=== PATIENT | female | born 1980 | race American Indian/Alaskan Native ===

== ENCOUNTER 2017-07-19 10:10 | Emergency (ER) | payer SELFPAY ==
[2017-07-19] MEDS ORDERED: DELTASONE PO ONE (13:46)
[2017-07-19] MEDS ORDERED: TYLENOL/CODEINE PO ONE (13:46)
--- NOTE | 2017-07-19 13:56 | Emergency Department Report ---
Minor Respiratory - HPI Chief Complaint: Upper Respiratory Infection Stated Complaint: SORE THROAT/MCBRIDE/COUGHING Time Seen by Provider: 07/19/17 13:13 Duration: 3 Days Pain Location: Ear Severity: moderate Minor Respiratory: Yes Sore Throat (pain with swallo), Yes Able to Tolerate Fluids, Yes Ear Pain, Yes Cough, No Rhinorrhea, No Sick Contacts, No Hemoptysis , No Chest Pain, No Shortness of Breath, No Fever Other History: Patient is a 37-year-old male who presents to ED complaining of throat pain 3 days. Patient describes pain as throbbing in nature, 8 out of 10 intensity, nonradiating, localized to his throat. Admits pain with swallowing and eating. Patient admits dry, nonproductive cough. Patient denies nausea/vomiting/abdominal pain/shortness of breath/chest pain/headache. ED Review of Systems ROS: Stated complaint: SORE THROAT/MCBRIDE/COUGHING Other details as noted in HPI Constitutional: denies: chills, fever Eyes: denies: eye pain, eye discharge, vision change ENT: throat pain. denies: ear pain Respiratory: cough. denies: shortness of breath, wheezing Cardiovascular: denies: chest pain, palpitations Endocrine: no symptoms reported Gastrointestinal: denies: abdominal pain, nausea, vomiting, diarrhea Genitourinary: denies: urgency, dysuria, frequency, hematuria, discharge Musculoskeletal: denies: back pain, joint swelling, arthralgia Skin: denies: rash, lesions, pruritus Neurological: denies: headache, weakness, paresthesias Psychiatric: denies: anxiety, depression Hematological/Lymphatic: denies: easy bleeding, easy bruising ED Past Medical Hx - Past Medical History Hx Hypertension: Yes Hx Congestive Heart Failure: No Hx Diabetes: Yes ("prediabetes" no treatment) Hx Deep Vein Thrombosis: No Hx Renal Disease: No Hx Sickle Cell Disease: No Hx Headaches / Migraines: Yes (migraines) Hx Seizures: No Hx Psychiatric Treatment: Yes (depression and anxiety) Hx Asthma: No Hx COPD: No Hx HIV: No - Social History Smoking Status: Never Smoker - Medications Home Medications: Home Medications Medication Instructions Recorded Confirmed Last Taken Type Azithromycin [Zithromax] 250 mg PO DAILY 11/02/16 11/02/16 Unknown History Losartan/Hydrochlorothiazide 1 each PO DAILY 11/02/16 11/02/16 Unknown History [Losartan-Hctz 50-12.5 mg Tab] Paroxetine HCl [Paxil] 30 mg PO DAILY 11/02/16 11/02/16 Unknown History amLODIPine [Norvasc] 10 mg PO DAILY 11/02/16 11/02/16 Unknown History clonazePAM [ Klonopin] 0.5 mg PO BID 11/02/16 11/02/16 Unknown History Acetamin/Codeine 120-12Mg/5 ml 5 ml PO TID PRN #60 ml 07/19/17 Unknown Rx [Tylenol/Codeine] Ibuprofen [Motrin] 600 mg PO Q8H PRN #30 tablet 07/19/17 Unknown Rx Nystas/Diphen/Xyl Visc/Mylanta 15 ml PO TID PRN #200 ml 07/19/17 Unknown Rx [Magic Mouthwash] Minor Respiratory Exam - Exam General: Vital signs noted. No distress. Alert and acting appropriately. HEENT: Yes Moist Mucous Membranes, No Pharyngeal Erythema, No Pharyngeal Exudates, No Rhinorrhea, No Conjuctival Injection, No Frontal Tenderness, No Maxillary Tenderness Ear: Neither TM Bulge, Neither TM Erythema, Neither EAC Pain, Neither EAC Discharge Neck: Yes Supple, No Adenopathy Lungs: Yes Good Air Exchange, No Wheezes, No Ronchi, No Stridor, No Cough, No Labored Respirations, No Retractions, No Use of Accessory Muscles, No Other Abnormal Lung Sounds Heart: Yes Regular, No Murmur Abdomen: Yes Normal Bowel Sounds, No Tenderness, No Peritoneal Signs Skin: No Rash, No Edema Neurologic: Alert and oriented, no deficits. Musculoskeletal: Unremarkable. ED Course Vital Signs 07/19/17 10:54 Temperature 99.8 F H Pulse Rate 102 H Respiratory 18 Rate Blood Pressure 172/98 O2 Sat by Pulse 99 Oximetry ED Medical Decision Making - Lab Data Temp Pulse Resp BP Pulse Ox 99.8 F H 94 H 20 160/90 96 07/19/17 10:54 07/19/17 15:24 07/19/17 15:24 07/19/17 15:24 07/19/17 15:24 Abnormal Lab Results 07/19/17 13:36 Group A Strep Rapid Positive A - Radiology Data Radiology results: report reviewed, image reviewed CHEST 2 VIEWS INDICATION: Chest pain, cough. COMPARISON: None similar. FINDINGS: PA and lateral chest radiographs demonstrate limited inspiration with mild exaggerated cardiomediastinal silhouette and clear lungs. Intact bones. Right hemidiaphragm approximately 3-4 cm higher than the left. CONCLUSION: No acute disease in the chest. Thank you for the opportunity to participate in this patient's care. Transcribed By: RS Dictated By: LARA VIRK MD Electronically Authenticated By: LARA VIRK MD Signed Date/Time: 07/19/17 1430 - Medical Decision Making 37-year-old female presents with strep pharyngitis. ED course: Rapid strep tests ordered rapid strep test positive Patient received 1 dose of Tylenol, 1.2 million units of penicillin, 60 mg of prednisone. Fever responsive to one dose of Tylenol. Vital signs stable patient is in no acute or respiratory distress. Discussed findings with patient about the positive strep. Discussed treatment in ED with patient Discussed the patient that strep throat is contagious and to limit sharing spoons and such. Application to be sent home on Motrin and a couple of days worth of prednisone. Discussed with patient follow-up with primary care physician. Patient verbally states he understands and will comply to follow-up. \\ Critical care attestation.: If time is entered above; I have spent that time in minutes in the direct care of this critically ill patient, excluding procedure time. ED Disposition Clinical Impression: Strep pharyngitis, Tonsillitis Disposition: DC-01 TO HOME OR SELFCARE Is pt being admited?: No Does the pt Need Aspirin: No Condition: Stable Instructions: Strep Throat (ED), Tonsillitis (ED) Additional Instructions: Make sure to follow up with the primary care physician as discussed. Take all your medications as you've been prescribed. If you have any worsening symptoms or develop new symptoms please return to ED immediately. Prescriptions: Acetamin/Codeine 120-12Mg/5 ml [Tylenol/Codeine] 5 ml PO TID PRN #60 ml PRN Reason: Pain Ibuprofen [Motrin] 600 mg PO Q8H PRN #30 tablet PRN Reason: Pain Nystas/Diphen/Xyl Visc/Mylanta [Magic Mouthwash] 15 ml PO TID PRN #200 ml PRN Reason: Sore Throat Referrals: PAVAN BRYSON MD [Referring] - 3-5 Days [facility] [Outside] - 3-5 Days [facility] [place] [Outside] - 3-5 Days [facility] [Outside] - 3-5 Days Forms: Accompanied Note, Work/School Release Form(ED) Time of Disposition: 14:40
--- NOTE | 2017-07-19 14:35 | XRay Report ---
CHEST 2 VIEWS INDICATION: Chest pain, cough. COMPARISON: None similar. FINDINGS: PA and lateral chest radiographs demonstrate limited inspiration with mild exaggerated cardiomediastinal silhouette and clear lungs. Intact bones. Right hemidiaphragm approximately 3-4 cm higher than the left. CONCLUSION: No acute disease in the chest. Thank you for the opportunity to participate in this patient's care.
[2017-07-19] MEDS ORDERED: BICILLIN L-A IM ONE (14:36)
[2017-07-19 15:25] VITALS: BP 160/90
== END 2017-07-19 15:23 | disposition home or self-care (01) ==
LOC: ED 10:10
DX: J02.0 Streptococcal pharyngitis (principal); J03.90 Acute tonsillitis, unspecified; I10 Essential (primary) hypertension
CPT/HCPCS: 71046; 87430; 96372; 99283; J0561; J7512

== ENCOUNTER 2018-01-27 06:54 | Emergency (ER) | payer SELFPAY ==
[2018-01-27 07:55] LABS: Basophils % (Auto) 0.3 % (0.0-1.8); Eosinophils % (Auto) 0.1 % (0.0-4.3); Hematocrit 35.8 % (30.3-42.9); Hemoglobin 11.7 gm/dl (10.1-14.3); Lymphocytes # (Auto) 1.6 K/mm3 (1.2-5.4); Lymphocytes % (Auto) 15.3 % (13.4-35.0); Mean Corpuscular HGB Conc 33 % (30-34); Mean Corpuscular Hemoglobin 27 pg (28-32); Mean Corpuscular Volume 81 fl (79-97); Monocytes # (Auto) 0.3 K/mm3 (0.0-0.8); Monocytes % (Auto) 2.7 % (0.0-7.3); Platelet Count 328 K/mm3 (140-440); Red Blood Count 4.42 M/mm3 (3.65-5.03); Red Cell Distribution Width 15.7 % (13.2-15.2)
[2018-01-27 08:21] LABS: Alanine Aminotransferase 18 units/L (7-56); Albumin 4.4 g/dL (3.9-5); BUN/Creatinine Ratio 18; Blood Urea Nitrogen 11 mg/dL (7-17); Calcium 9.4 mg/dL (8.4-10.2); Hemolysis Index 12; Lipase 13 units/L (13-60)
[2018-01-27 08:25] LABS: Bilirubin,Urine NEG (Negative); Blood,Urine NEG (Negative); Color,Urine Yellow (Yellow); Urobilinogen,Urine < 2.0 mg/dL (<2.0)
[2018-01-27] MEDS ORDERED: PERCOCET 5/325 PO ONE (09:23)
[2018-01-27] MEDS ORDERED: ZOFRAN ODT PO ONE (09:23)
[2018-01-27] MEDS ORDERED: TORADOL IM ONE (09:23)
--- NOTE | 2018-01-27 09:34 | Emergency Department Report ---
ED Abdominal Pain HPI - General Chief Complaint: Abdominal Pain Stated Complaint: BACK PAIN AND STOMACK PAIN Time Seen by Provider: 01/27/18 09:17 Source: patient Mode of arrival: Ambulatory Limitations: No Limitations - History of Present Illness Initial Comments: Ms. Phillips is a 37-year-old female with history of hypertension and anxiety depression who presents with lower back pain for the last month. She was evaluated at [facility]. X-rays were performed. She has left flank pain radiating to the lower abdomen. Radiating also to the left lower back and left upper quadrant. She's had nausea and vomiting. Mild dysuria. She denies fever. No history of kidney infections or kidney stones. Pain began one month ago and has worsened since yesterday on yesterday. Sharp crampy pain. 1010 in severity. Radiating to the left upper quadrant. MD Complaint: flank pain -: Gradual, month(s) (1) Location: L flank Radiation: suprapubic, R flank Severity scale (0 -10): 10 Quality: cramping, sharp Consistency: colicky Associated Symptoms: nausea, vomiting, dysuria - Related Data Home Medications Medication Instructions Recorded Confirmed Last Taken Azithromycin [Zithromax] 250 mg PO DAILY 11/02/16 11/02/16 Unknown Losartan/Hydrochlorothiazide 1 each PO DAILY 11/02/16 11/02/16 Unknown [Losartan-Hctz 50-12.5 mg Tab] Paroxetine HCl [Paxil] 30 mg PO DAILY 11/02/16 11/02/16 Unknown amLODIPine [Norvasc] 10 mg PO DAILY 11/02/16 11/02/16 Unknown clonazePAM [ Klonopin] 0.5 mg PO BID 11/02/16 11/02/16 Unknown Previous Rx's Medication Instructions Recorded Last Taken Type Acetamin/Codeine 120-12Mg/5 ml 5 ml PO TID PRN #60 ml 07/19/17 Unknown Rx [Tylenol/Codeine] Ibuprofen [Motrin] 600 mg PO Q8H PRN #30 tablet 07/19/17 Unknown Rx Nystas/Diphen/Xyl Visc/Mylanta 15 ml PO TID PRN #200 ml 07/19/17 Unknown Rx [Magic Mouthwash] Cyclobenzaprine [Flexeril] 10 mg PO TID PRN #20 tablet 01/27/18 Unknown Rx oxyCODONE /ACETAMINOPHEN [Percocet 1 tab PO Q6HR PRN #15 tablet 01/27/18 Unknown Rx 5/325] Allergies Allergy/AdvReac Type Severity Reaction Status Date / Time iodine Allergy Unknown Verified 01/27/18 07:17 seafood Allergy Anaphylaxis Uncoded 11/02/16 17:15 ED Review of Systems ROS: Stated complaint: BACK PAIN AND STOMACK PAIN Other details as noted in HPI Comment: All other systems reviewed and negative Constitutional: denies: fever, malaise Respiratory: denies: cough Cardiovascular: denies: chest pain ED Past Medical Hx - Past Medical History Hx Hypertension: Yes Hx Congestive Heart Failure: No Hx Diabetes: Yes ("prediabetes" no treatment) Hx Deep Vein Thrombosis: No Hx Renal Disease: No Hx Sickle Cell Disease: No Hx Headaches / Migraines: Yes (migraines) Hx Seizures: No Hx Psychiatric Treatment: Yes (depression and anxiety) Hx Asthma: No Hx COPD: No Hx HIV: No - Social History Smoking Status: Never Smoker Substance Use Type: None - Medications Home Medications: Home Medications Medication Instructions Recorded Confirmed Last Taken Type Azithromycin [Zithromax] 250 mg PO DAILY 11/02/16 11/02/16 Unknown History Losartan/Hydrochlorothiazide 1 each PO DAILY 11/02/16 11/02/16 Unknown History [Losartan-Hctz 50-12.5 mg Tab] Paroxetine HCl [Paxil] 30 mg PO DAILY 11/02/16 11/02/16 Unknown History amLODIPine [Norvasc] 10 mg PO DAILY 11/02/16 11/02/16 Unknown History clonazePAM [ Klonopin] 0.5 mg PO BID 11/02/16 11/02/16 Unknown History Acetamin/Codeine 120-12Mg/5 ml 5 ml PO TID PRN #60 ml 07/19/17 Unknown Rx [Tylenol/Codeine] Ibuprofen [Motrin] 600 mg PO Q8H PRN #30 tablet 07/19/17 Unknown Rx Nystas/Diphen/Xyl Visc/Mylanta 15 ml PO TID PRN #200 ml 07/19/17 Unknown Rx [Magic Mouthwash] Cyclobenzaprine [Flexeril] 10 mg PO TID PRN #20 tablet 01/27/18 Unknown Rx oxyCODONE /ACETAMINOPHEN [Percocet 1 tab PO Q6HR PRN #15 tablet 01/27/18 Unknown Rx 5/325] ED Physical Exam - General Limitations: No Limitations General appearance: alert, in no apparent distress, other (appears uncomfortable ) - Head Head exam: Present: atraumatic, normocephalic - Eye Eye exam: Present: normal appearance - ENT ENT exam: Present: mucous membranes moist - Neck Neck exam: Present: normal inspection. Absent: tenderness, meningismus - Respiratory Respiratory exam: Present: normal lung sounds bilaterally. Absent: respiratory distress, wheezes, rhonchi - Cardiovascular Cardiovascular Exam: Present: regular rate, normal rhythm, normal heart sounds. Absent: bradycardia, tachycardia, systolic murmur, diastolic murmur, rubs, gallop - GI/Abdominal GI/Abdominal exam: Present: soft, normal bowel sounds. Absent: distended, tenderness, guarding, rebound - Extremities Exam Extremities exam: Present: normal inspection - Back Exam Back exam: Present: normal inspection - Neurological Exam Neurological exam: Present: alert, oriented X3 - Psychiatric Psychiatric exam: Present: normal affect, normal mood - Skin Skin exam: Present: warm, dry, intact, normal color. Absent: rash ED Course Vital Signs 01/27/18 01/27/18 01/27/18 07:18 09:37 09:39 Temperature 97.8 F Pulse Rate 94 H Respiratory 18 18 18 Rate Blood Pressure 172/91 Blood Pressure [Left] O2 Sat by Pulse 100 Oximetry 01/27/18 10:53 Temperature 98 F Pulse Rate 98 H Respiratory 20 Rate Blood Pressure Blood Pressure 148/95 [Left] O2 Sat by Pulse 98 Oximetry ED Medical Decision Making - Lab Data Result diagrams: 01/27/18 07:42 01/27/18 07:42 - Radiology Data Radiology results: report reviewed, image reviewed interpreted by me: I reviewed two-view chest x-ray: PA lateral no infiltrate no density no mass no acute process no bony abnormality no pneumothorax I review CT scan report: Gallstones noted without acute intra-abdominal process - Medical Decision Making Ms. Phillips presents with left flank pain radiating to right flank and suprapubic region. DDX: Renal colic, pyelonephritis, IBS, constipation, lumbar degenerative disc disease, , I strongly suspect lumbar degenerative disc disease. Patient felt much better after receiving pain medication in the ED. Prescribed Percocet and Flexeril. Critical care attestation.: If time is entered above; I have spent that time in minutes in the direct care of this critically ill patient, excluding procedure time. ED Disposition Clinical Impression: Flank pain Disposition: DC- TO HOME OR SELFCARE Is pt being admited?: No Does the pt Need Aspirin: No Condition: Stable Instructions: Abdominal Pain (ED), Flank Pain (ED) Prescriptions: Cyclobenzaprine [Flexeril] 10 mg PO TID PRN #20 tablet PRN Reason: Muscle Spasm oxyCODONE /ACETAMINOPHEN [Percocet 5/325] 1 tab PO Q6HR PRN #15 tablet PRN Reason: Pain Referrals: PRIMARY CARE, [Primary Care Provider] - BOB
[2018-01-27 10:56] VITALS: BP 148/95
--- NOTE | 2018-01-27 11:23 | Cat Scan Report ---
FINAL REPORT PROCEDURE: CT ABDOMEN PELVIS WO CON TECHNIQUE: Computerized axial tomography of the abdomen and pelvis was performed without intravenous contrast. This study is performed without intravascular contrast material and its sensitivity for abdominal and pelvic pathology, including neoplasms, inflammation, abscess, free fluid, thrombosis, arterial dissection and infarction, is reduced compared with a contrast enhanced study. HISTORY: flank pain COMPARISON: No prior studies are available for comparison. FINDINGS: Lower Lung capone: On image 1 series 2 axial image there is a small indeterminate density in the left lower lobe extending over approximately 11 millimeters x 5 millimeters. This is only seen on the 1st image. Follow-up PA and lateral chest x-ray recommended. Lung bases otherwise are clear. Upper Abdomen: Small gas densities are seen in the gallbladder consistent with cholesterol gallstones. Gallbladder is mildly distended. The unenhanced images the liver show no focal abnormalities. The adrenal glands, the pancreas and the spleen are unremarkable. Kidneys, Ureters and Urinary bladder: Kidneys are unremarkable. No masses calculi or hydronephrosis visualized. Small calcification is seen in the right and left lower pelvis appears to represent phleboliths. Urinary bladder is unremarkable. Retroperitoneum: Atherosclerotic changes are seen in the abdominal aorta. No aneurysm is visualized. Nonspecific subcentimeter lymph nodes are seen in the retroperitoneum. No pathologically enlarged lymph nodes are identified. Bowel: Minimal sigmoid diverticulosis visualized without evidence of diverticulitis. No evidence of bowel obstruction ascites or free intraperitoneal gas. Normal-appearing appendix is seen in the right lower quadrant. Reproductive organs: The uterus is mildly prominent. There is subtle surface nodularity posteriorly. There may be small fibroids present. Uterus is otherwise unremarkable. No abnormal adnexal masses are seen. Other: No acute bony abnormalities are seen IMPRESSION: No evidence of renal or ureteral calculi. There is no hydronephrosis. Multiple gas densities are seen in the gallbladder consistent with cholesterol gallstones. Consider follow-up gallbladder ultrasound. Indeterminate density left lower lobe as described. Follow-up PA and lateral chest x-ray recommended for further evaluation. Minimal prominence of the uterus as described. There may be small fibroids present.. Minimal colonic diverticulosis.
--- NOTE | 2018-01-27 14:05 | XRay Report ---
FINAL REPORT EXAM: XR CHEST ROUTINE 2V HISTORY: abnormal lung finding on ct TECHNIQUE: Two views of the chest Comparison: CT abdomen and pelvis lung bases same day demonstrating 11 x 5 millimeter indeterminate density in the left lower lobe seen on the 1st image FINDINGS: Normal heart size. Lungs are clear and well expanded without focal infiltrate or consolidation. No pleural effusion. No definite nodule or mass identified. Larger patient body habitus limits the sensitivity of chest x-ray. Review of the CT suggests the finding may represent volume averaging and mild motion degradation. IMPRESSION: No acute cardiopulmonary abnormality.
== END 2018-01-27 13:20 | disposition home or self-care (01) ==
LOC: ED 06:54
DX: R10.9 Unspecified abdominal pain (principal); M54.5 Low back pain; R30.0 Dysuria; I10 Essential (primary) hypertension; G43.909 Migraine, unspecified, not intractable, without status migrainosus; F41.9 Anxiety disorder, unspecified; F32.9 Major depressive disorder, single episode, unspecified; E11.9 Type 2 diabetes mellitus without complications; Z91.041 Radiographic dye allergy status; Z91.013 Allergy to seafood; Z79.899 Other long term (current) drug therapy
CPT/HCPCS: 36415; 71046; 74176; 80053; 81001; 83690; 84703; 85025; 96372; 99284; J1885; Q0162

== ENCOUNTER 2018-06-04 09:14 | Outpatient (CLI) | payer MEDICAID ==
--- NOTE | 2018-06-04 09:52 | Mammography Report ---
Bilateral mammogram: No previous studies of the liver. CAD study utilized. Findings: Predominantly adipose tissue bilaterally. Focal centimeter asymmetry in the mid posterior left breast seen on CC view. No microcalcification. Biopsy. Left breast. Normal axillae. Impression: Focal asymmetry left breast. Comparison with previous studies is recommended. If previous studies are not available Spot compression and if necessary sonographic examination advised. BI-RADS CATEGORY: 0 = Needs additional imaging evaluation ACR BI-RADS MAMMOGRAPHIC CODES: 0 = Needs additional imaging evaluation; 1 = Negative; 2 = Benign; 3 = Probably benign; 4 = Suspicious; 5 = Malignant; 6 = Known biopsy-proven malignancy COMMENT: 1. Dense breast tissue, i.e., adenosis, fibrocystic changes, etc., may obscure an underlying neoplasm. 2. Approximately 10% of cancers are not detected with mammography. 3. A negative mammography report should not delay biopsy if a clinically suspicious mass is present. COMMENT: Patient follow-up letters are generated in [employer].
== END 2018-06-04 09:15 | disposition home or self-care (01) ==
LOC: MAMMO 09:14
PROVIDERS: ATTEND Advanced Practice Midwife
DX: Z12.31 Encounter for screening mammogram for malignant neoplasm of breast (principal); I10 Essential (primary) hypertension; E66.01 Morbid (severe) obesity due to excess calories
CPT/HCPCS: 77067

== ENCOUNTER 2018-09-26 07:43 | Emergency (ER) | payer MEDICAID ==
[2018-09-26] MEDS ORDERED: NACL 0.9% 1000 ML 1,000 ML IV ONE (09:54)
[2018-09-26] MEDS ORDERED: ZOFRAN IV ONE (09:54)
[2018-09-26] MEDS ORDERED: MORPHINE IV ONE (09:54)
[2018-09-26] MEDS ORDERED: PROTONIX IV ONE (09:58)
--- NOTE | 2018-09-26 10:00 | Emergency Department Report ---
ED Abdominal Pain HPI - General Chief Complaint: Chest Pain Stated Complaint: CHEST/ABD PAIN Time Seen by Provider: 09/26/18 09:50 Source: patient Mode of arrival: Ambulatory Limitations: No Limitations - History of Present Illness Initial Comments: 38-year-old female with history of hypertension presents to the ED with complaint chest and abdominal pain. Patient states currently chest pain has resolved and she is only experiencing abdominal pain. Pain is located in the epigastric area, nonradiating. He reports associated nausea and vomiting. De nies fever, diarrhea. Patient reports onset of pain this morning, approximately 7 hours ago. Patient states she is experienced this pain previously, and was told that it was GERD MD Complaint: abdominal pain -: This morning Location: epigastric Radiation: none Migration to: no migration Severity: moderate Quality: cramping, aching Consistency: constant Improves With: nothing Worsens With: nothing Associated Symptoms: nausea, vomiting. denies: diarrhea, fever - Related Data Home Medications Medication Instructions Recorded Confirmed Last Taken Azithromycin [Zithromax] 250 mg PO DAILY 11/02/16 11/02/16 Unknown Losartan/Hydrochlorothiazide 1 each PO DAILY 11/02/16 11/02/16 Unknown [Losartan-Hctz 50-12.5 mg Tab] Paroxetine HCl [Paxil] 30 mg PO DAILY 11/02/16 11/02/16 Unknown amLODIPine [Norvasc] 10 mg PO DAILY 11/02/16 11/02/16 Unknown clonazePAM [ Klonopin] 0.5 mg PO BID 11/02/16 11/02/16 Unknown Previous Rx's Medication Instructions Recorded Last Taken Type Acetamin/Codeine 120-12Mg/5 ml 5 ml PO TID PRN #60 ml 07/19/17 Unknown Rx [Tylenol/Codeine] Ibuprofen [Motrin] 600 mg PO Q8H PRN #30 tablet 07/19/17 Unknown Rx Nystas/Diphen/Xyl Visc/Mylanta 15 ml PO TID PRN #200 ml 07/19/17 Unknown Rx [Magic Mouthwash] Cyclobenzaprine [Flexeril] 10 mg PO TID PRN #20 tablet 01/27/18 Unknown Rx oxyCODONE /ACETAMINOPHEN [Percocet 1 tab PO Q6HR PRN #15 tablet 01/27/18 Unknown Rx 5/325] Dicyclomine [Bentyl] 20 mg PO QID PRN #20 tablet 09/26/18 Unknown Rx Naproxen [Naprosyn] 500 mg PO BID #20 tablet 09/26/18 Unknown Rx Ondansetron [Zofran Odt] 4 mg PO Q8HR PRN #20 tab.rapdis 09/26/18 Unknown Rx traMADol [Ultram] 50 mg PO Q6HR PRN #7 tablet 09/26/18 Unknown Rx Allergies Allergy/AdvReac Type Severity Reaction Status Date / Time iodine Allergy Unknown Verified 01/27/18 07:17 seafood Allergy Anaphylaxis Uncoded 11/02/16 17:15 ED Review of Systems ROS: Stated complaint: CHEST/ABD PAIN Other details as noted in HPI Comment: All other systems reviewed and negative Constitutional: denies: chills, fever Respiratory: denies: shortness of breath Cardiovascular: chest pain Gastrointestinal: abdominal pain, nausea, vomiting. denies: diarrhea ED Past Medical Hx - Past Medical History Hx Hypertension: Yes Hx Congestive Heart Failure: No Hx Diabetes: Yes ("prediabetes" no treatment) Hx Deep Vein Thrombosis: No Hx Renal Disease: No Hx Sickle Cell Disease: No Hx Headaches / Migraines: Yes (migraines) Hx Seizures: No Hx Psychiatric Treatment: Yes (depression and anxiety) Hx Asthma: No Hx COPD: No Hx HIV: No - Social History Smoking Status: Never Smoker Substance Use Type: None - Medications Home Medications: Home Medications Medication Instructions Recorded Confirmed Last Taken Type Azithromycin [Zithromax] 250 mg PO DAILY 11/02/16 11/02/16 Unknown History Losartan/Hydrochlorothiazide 1 each PO DAILY 11/02/16 11/02/16 Unknown History [Losartan-Hctz 50-12.5 mg Tab] Paroxetine HCl [Paxil] 30 mg PO DAILY 11/02/16 11/02/16 Unknown History amLODIPine [Norvasc] 10 mg PO DAILY 11/02/16 11/02/16 Unknown History clonazePAM [ Klonopin] 0.5 mg PO BID 11/02/16 11/02/16 Unknown History Acetamin/Codeine 120-12Mg/5 ml 5 ml PO TID PRN #60 ml 07/19/17 Unknown Rx [Tylenol/Codeine] Ibuprofen [Motrin] 600 mg PO Q8H PRN #30 tablet 07/19/17 Unknown Rx Nystas/Diphen/Xyl Visc/Mylanta 15 ml PO TID PRN #200 ml 07/19/17 Unknown Rx [Magic Mouthwash] Cyclobenzaprine [Flexeril] 10 mg PO TID PRN #20 tablet 01/27/18 Unknown Rx oxyCODONE /ACETAMINOPHEN [Percocet 1 tab PO Q6HR PRN #15 tablet 01/27/18 Unkno wn Rx 5/325] Dicyclomine [Bentyl] 20 mg PO QID PRN #20 tablet 09/26/18 Unknown Rx Naproxen [Naprosyn] 500 mg PO BID #20 tablet 09/26/18 Unknown Rx Ondansetron [Zofran Odt] 4 mg PO Q8HR PRN #20 tab.rapdis 09/26/18 Unknown Rx traMADol [Ultram] 50 mg PO Q6HR PRN #7 tablet 09/26/18 Unknown Rx ED Physical Exam - General Limitations: No Limitations General appearance: alert, other (appears uncomfortable) - Head Head exam: Present: atraumatic, normocephalic - Eye Eye exam: Present: normal appearance - ENT ENT exam: Present: mucous membranes moist - Neck Neck exam: Present: normal inspection - Respiratory Respiratory exam: Present: normal lung sounds bilaterally. Absent: respiratory distress - Cardiovascular Cardiovascular Exam: Present: regular rate, normal rhythm - GI/Abdominal GI/Abdominal exam: Present: soft, tenderness (mild RUQ, moderate epigastric). Absent: distended - Extremities Exam Extremities exam: Present: normal inspection - Neurological Exam Neurological exam: Present: alert, oriented X3 - Psychiatric Psychiatric exam: Present: normal affect, normal mood - Skin Skin exam: Present: warm, dry, intact, normal color. Absent: rash ED Course Vital Signs 09/26/18 09/26/18 10:13 10:18 Respiratory 20 20 Rate ED Medical Decision Making - Lab Data Result diagrams: 09/26/18 10:01 09/26/18 10:01 - EKG Data -: EKG Interpreted by Me EKG shows normal: sinus rhythm, axis, intervals, QRS complexes, ST-T waves Rate: normal - EKG Data Interpretation: no acute changes - Radiology Data Radiology results: report reviewed, image reviewed - Medical Decision Making - labs normal - gallstones on CT, no evidence of cholecystitis - pt feeling much better at this time - advised outpt surgery follow- up - return precautions given - pt advised to follow low-fat diet - Differential Diagnosis pancreatitis, GERD, gallstones, bowel obstruction Critical care attestation.: If time is entered above; I have spent that time in minutes in the direct care of this critically ill patient, excluding procedure time. ED Disposition Clinical Impression: Gall stones Disposition: - TO HOME OR SELFCARE Is pt being admited?: No Condition: Stable Instructions: Biliary Colic (ED), Low Fat Diet (ED) Referrals: HAYLEY BRIAN MD [Primary Care Provider] - 3-5 Days MERA WEST MD [Staff Physician] - 3-5 Days Time of Disposition: 12:02
[2018-09-26 10:34] LABS: Basophils % (Auto) 0.2 % (0.0-1.8); Hematocrit 36.3 % (30.3-42.9); Lymphocytes # (Auto) 1.3 K/mm3 (1.2-5.4); Lymphocytes % (Auto) 12.6 % (13.4-35.0); Mean Corpuscular HGB Conc 33 % (30-34); Mean Corpuscular Volume 81 fl (79-97); Monocytes # (Auto) 0.2 K/mm3 (0.0-0.8); Monocytes % (Auto) 1.9 % (0.0-7.3); Platelet Count 338 K/mm3 (140-440); Red Blood Count 4.48 M/mm3 (3.65-5.03); Red Cell Distribution Width 15.3 % (13.2-15.2)
[2018-09-26 10:41] LABS: Alanine Aminotransferase 16 units/L (7-56); Albumin 4.2 g/dL (3.9-5); BUN/Creatinine Ratio 14; Blood Urea Nitrogen 10 mg/dL (7-17); Calcium 8.8 mg/dL (8.4-10.2); Hemolysis Index 0
--- NOTE | 2018-09-26 11:38 | XRay Report ---
Abdominal series: Pain. AP view of the chest is unremarkable. No free air noted. Supine and upright views of the abdomen demonstrates scattered dilated loops of small bowel containing air-fluid levels in the midabdomen. The colon is decompressed as is the remainder of the bowel. No masses and no calcifications identified. Impression: Mild changes of small bowel ileus.
--- NOTE | 2018-09-26 11:45 | Cat Scan Report ---
PROCEDURE: CT ABDOMEN PELVIS WO CON TECHNIQUE: Computerized axial tomography of the abdomen and pelvis was performed without intravenous contrast. This study is performed without intravascular contrast material and its sensitivity for abd ominal and pelvic pathology, including neoplasms, inflammation, abscess, free fluid, thrombosis, dorothy rial dissection and infarction, is reduced compared with a contrast enhanced study. CT DOSE LENGTH PRODUCT: 1717.8 mGy-cm. HISTORY: abd pain COMPARISONS: CT abdomen pelvis January 272017. FINDINGS: Abdomen: 7.3 mm right upper lobe pulmonary nodule series 2:5. Possible partially imaged pulmonary nodule left upper lobe series 2:1 Gallbladder: Distended. Gallstones. No wall thickening. Common bile duct does not appear prominent on CT. Adrenals: Nodular hyperplasia of the left adrenal gland. Attenuation suggesting adenoma. Right adrena l gland is unremarkable. Liver, stomach, spleen, pancreas, and kidneys are unremarkable. No hydronephrosis. No nephroureteral stones. No aneurysm. No significant atherosclerotic disease. IVC is unremarkable. There is no periaortic or retroperitoneal adenopathy or mass. Sections of the left colon are collapsed which limits evaluation for wall thickening. A mild colitis is not entirely excluded. No stranding. Mild to moderate stool in the remainder of the colon. No wall thickening or stranding. Terminal ileum is unremarkable. Appendix is normal. Small bowel loops are unremarkable. No obstructive pattern. No air-fluid levels. No free air. No free fluid. Mesentery is unremarkable. Pelvis: Oval-shaped, low attenuation 2.5 cm lesion in the left adnexa may represent an ovary with ovarian cys t. Uterus: Limited images are unremarkable. Bladder: Unremarkable. No wall thickening. No stone. There is no pelvic mass or adenopathy. Inguinal regions are unremarkable. Bones: No suspicious osseous lesions on this limited examination of the skeleton. Metastatic disease better evaluated with bone scan. IMPRESSION: * Indeterminate gallbladder findings. Please correlate with gallbladder ultrasound for cholecystitis if clinically indicated. Similar in appearance compared to prior. * Pulmonary nodules. Follow-up imaging with a CT thorax is recommended if clinically indicated. * Benign adenoma of the left adrenal gland. Stable compared to prior. * Probable left ovary with ovarian cyst. * No acute bowel findings. No hydronephrosis. No nephroureteral stones. This document is electronically signed by Dinh Sofia MD., September 26 2018 11:43:21 AM ET
[2018-09-26 12:41] VITALS: BP 153/97
== END 2018-09-26 12:44 | disposition home or self-care (01) ==
LOC: ED 07:43
DX: K80.20 Calculus of gallbladder without cholecystitis without obstruction (principal); R11.2 Nausea with vomiting, unspecified; I10 Essential (primary) hypertension; G43.909 Migraine, unspecified, not intractable, without status migrainosus; F32.9 Major depressive disorder, single episode, unspecified; F41.9 Anxiety disorder, unspecified; Z91.041 Radiographic dye allergy status; Z91.013 Allergy to seafood; Z79.899 Other long term (current) drug therapy
CPT/HCPCS: 36415; 74022; 74176; 80053; 83690; 84484; 84703; 85025; 93005; 93010; 96361; 96374; 96375; 99284; C9113; J2270; J2405; J7030

== ENCOUNTER 2018-12-18 07:12 | Emergency (ER) | payer MEDICAID ==
[2018-12-18 07:48] LABS: Basophils % (Auto) 0.4 % (0.0-1.8); Eosinophils # (Auto) 0.2 K/mm3 (0.0-0.4); Eosinophils % (Auto) 1.9 % (0.0-4.3); Hematocrit 35.4 % (30.3-42.9); Hemoglobin 11.7 gm/dl (10.1-14.3); Lymphocytes # (Auto) 3.1 K/mm3 (1.2-5.4); Lymphocytes % (Auto) 30.9 % (13.4-35.0); Mean Corpuscular HGB Conc 33 % (30-34); Mean Corpuscular Volume 80 fl (79-97); Monocytes # (Auto) 0.6 K/mm3 (0.0-0.8); Monocytes % (Auto) 5.5 % (0.0-7.3); Platelet Count 305 K/mm3 (140-440); Red Blood Count 4.42 M/mm3 (3.65-5.03); Red Cell Distribution Width 15.2 % (13.2-15.2)
[2018-12-18 08:09] LABS: Alanine Aminotransferase 21 units/L (7-56); Albumin 3.9 g/dL (3.9-5); BUN/Creatinine Ratio 12; Blood Urea Nitrogen 7 mg/dL (7-17); Calcium 9.1 mg/dL (8.4-10.2); Hemolysis Index 7
[2018-12-18 08:23] LABS: Bacteria,Urine 2+ /HPF (Negative); Bilirubin,Urine NEG (Negative); Blood,Urine NEG (Negative); Color,Urine Yellow (Yellow); Protein,Urine <15 mg/dL mg/dL (Negative); RBC,Urine < 1.0 /HPF (0.0-6.0); Urobilinogen,Urine < 2.0 mg/dL (<2.0)
[2018-12-18 08:24] LABS: HCG Qualitative,Urine Negative (Negative)
[2018-12-18] MEDS ORDERED: NACL 0.9% 1000 ML 1,000 ML IV ONE (08:32)
[2018-12-18] MEDS ORDERED: MORPHINE IV ONE (08:32)
[2018-12-18] MEDS ORDERED: ZOFRAN IV ONE (08:32)
--- NOTE | 2018-12-18 08:36 | Emergency Department Report ---
ED General Adult HPI - General Chief complaint: Abdominal Pain Stated complaint: ABD/CHEST PAIN Time Seen by Provider: 12/18/18 08:29 Source: patient Mode of arrival: Ambulatory Limitations: No Limitations - History of Present Illness Initial comments: Patient presents to the emergency department with a chief complaint of right upper quadrant abdominal pain has been present since 5:30 this morning. Patient describes the pain is sharp in nature with radiation into her back. Patient states she's had pain before like this and was told she has gallstones. Patient denies chest pain, shortness of breath, or headache. -: Sudden Location: abdomen Radiation: back Severity scale (0 -10): 8 Quality: sharp Consistency: constant Improves with: none Worsens with: none Associated Symptoms: denies other symptoms Treatments Prior to Arrival: none - Related Data Home Medications Medication Instructions Recorded Confirmed Last Taken Azithromycin [Zithromax] 250 mg PO DAILY 11/02/16 11/02/16 Unknown Losartan/Hydrochlorothiazide 1 each PO DAILY 11/02/16 11/02/16 Unknown [Losartan-Hctz 50-12.5 mg Tab] Paroxetine HCl [Paxil] 30 mg PO DAILY 11/02/16 11/02/16 Unknown amLODIPine [Norvasc] 10 mg PO DAILY 11/02/16 11/02/16 Unknown clonazePAM [ Klonopin] 0.5 mg PO BID 11/02/16 11/02/16 Unknown Previous Rx's Medication Instructions Recorded Last Taken Type Acetamin/Codeine 120-12Mg/5 ml 5 ml PO TID PRN #60 ml 07/19/17 Unknown Rx [Tylenol/Codeine] Ibuprofen [Motrin] 600 mg PO Q8H PRN #30 tablet 07/19/17 Unknown Rx Nystas/Diphen/Xyl Visc/Mylanta 15 ml PO TID PRN #200 ml 07/19/17 Unknown Rx [Magic Mouthwash] Cyclobenzaprine [Flexeril] 10 mg PO TID PRN #20 tablet 01/27/18 Unknown Rx oxyCODONE /ACETAMINOPHEN [Percocet 1 tab PO Q6HR PRN #15 tablet 01/27/18 Unknown Rx 5/325] Dicyclomine [Bentyl] 20 mg PO QID PRN #20 tablet 09/26/18 Unknown Rx Naproxen [Naprosyn] 500 mg PO BID #20 tablet 09/26/18 Unknown Rx Ondansetron [Zofran Odt] 4 mg PO Q8HR PRN #20 tab.rapdis 09/26/18 Unknown Rx traMADol [Ultram] 50 mg PO Q6HR PRN #7 tablet 09/26/18 Unknown Rx HYDROcodone/APAP 5-325 [[place] 1 each PO Q6HR PRN #12 tablet 12/18/18 Unknown Rx 5/325] Ondansetron [Zofran Odt] 4 mg PO Q4HR PRN #20 tab.rapdis 12/18/18 Unknown Rx Promethazine [Phenergan TAB] 25 mg PO Q6HR PRN #20 tab 12/18/18 Unknown Rx Allergies Allergy/AdvReac Type Severity Reaction Status Date / Time iodine Allergy Unknown Verified 01/27/18 07:17 seafood Allergy Anaphylaxis Uncoded 11/02/16 17:15 ED Review of Systems ROS: Stated complaint: ABD/CHEST PAIN Other details as noted in HPI Comment: All other systems reviewed and negative Constitutional: denies: chills, fever Eyes: denies: eye pain, eye discharge, vision change ENT: denies: ear pain, throat pain Respiratory: denies: cough, shortness of breath, wheezing Cardiovascular: denies: chest pain, palpitations Endocrine: no symptoms reported Gastrointestinal: abdominal pain, nausea, vomiting. denies: diarrhea Genitourinary: denies: urgency, dysuria, discharge Musculoskeletal: denies: back pain, joint swelling, arthralgia Skin: denies: rash, lesions Neurological: denies: headache, weakness, paresthesias Psychiatric: denies: anxiety, depression Hematological/Lymphatic: denies: easy bleeding, easy bruising ED Past Medical Hx - Past Medical History Previous Medical History?: Yes Hx Hypertension: Yes Hx Congestive Heart Failure: No Hx Diabetes: Yes ("prediabetes" no treatment) Hx Deep Vein Thrombosis: No Hx Renal Disease: No Hx Sickle Cell Disease: No Hx Headaches / Migraines: Yes (migraines) Hx Seizures: No Hx Psychiatric Treatment: Yes (depression and anxiety) Hx Asthma: No Hx COPD: No Hx HIV: No - Social History Smoking Status: Never Smoker Substance Use Type: None - Medications Home Medications: Home Medications Medication Instructions Recorded Confirmed Last Taken Type Azithromycin [Zithromax] 250 mg PO DAILY 11/02/16 11/02/16 Unknown History Losartan/Hydrochlorothiazide 1 each PO DAILY 11/02/16 11/02/16 Unknown History [Losartan-Hctz 50-12.5 mg Tab] Paroxetine HCl [Paxil] 30 mg PO DAILY 11/02/16 11/02/16 Unknown History amLODIPine [Norvasc] 10 mg PO DAILY 11/02/16 11/02/16 Unknown History clonazePAM [ Klonopin] 0.5 mg PO BID 11/02/16 11/02/16 Unknown History Acetamin/Codeine 120-12Mg/5 ml 5 ml PO TID PRN #60 ml 07/19/17 Unknown Rx [Tylenol/Codeine] Ibuprofen [Motrin] 600 mg PO Q8H PRN #30 tablet 07/19/17 Unknown Rx Nystas/Diphen/Xyl Visc/Mylanta 15 ml PO TID PRN #200 ml 07/19/17 Unknown Rx [Magic Mouthwash] Cyclobenzaprine [Flexeril] 10 mg PO TID PRN #20 tablet 01/27/18 Unknown Rx oxyCODONE /ACETAMINOPHEN [Percocet 1 tab PO Q6HR PRN #15 tablet 01/27/18 Unknown Rx 5/325] Dicyclomine [Bentyl] 20 mg PO QID PRN #20 tablet 09/26/18 Unknown Rx Naproxen [Naprosyn] 500 mg PO BID #20 tablet 09/26/18 Unknown Rx Ondansetron [Zofran Odt] 4 mg PO Q8HR PRN #20 tab.rapdis 09/26/18 Unknown Rx traMADol [Ultram] 50 mg PO Q6HR PRN #7 tablet 09/26/18 Unknown Rx HYDROcodone/APAP 5-325 [[place] 1 each PO Q6HR PRN #12 tablet 12/18/18 Unknown Rx 5/325] Ondansetron [Zofran Odt] 4 mg PO Q4HR PRN #20 tab.rapdis 12/18/18 Unknown Rx Promethazine [Phenergan TAB] 25 mg PO Q6HR PRN #20 tab 12/18/18 Unknown Rx ED Physical Exam - General Limitations: No Limitations General appearance: alert, in no apparent distress - Head Head exam: Present: atraumatic, normocephalic - Eye Eye exam: Present: normal appearance, PERRL, EOMI - ENT ENT exam: Present: mucous membranes dry - Neck Neck exam: Present: normal inspection - Respiratory Respiratory exam: Present: normal lung sounds bilaterally. Absent: respiratory distress - Cardiovascular Cardiovascular Exam: Present: regular rate, normal rhythm. Absent: systolic murmur, diastolic murmur, rubs, gallop - GI/Abdominal GI/Abdominal exam: Present: soft, tenderness (RUQ TTP), normal bowel sounds. Absent: distended - Extremities Exam Extremities exam: Present: normal inspection - Back Exam Back exam: Present: normal inspection - Neurological Exam Neurological exam: Present: alert, oriented X3, CN II-XII intact. Absent: motor sensory deficit - Psychiatric Psychiatric exam: Present: normal affect, normal mood - Skin Skin exam: Present: warm, dry, intact, normal color. Absent: rash ED Course Vital Signs 12/18/18 07:18 Temperature 98.1 F Pulse Rate 78 Respiratory 18 Rate Blood Pressure 178/100 O2 Sat by Pulse 99 Oximetry ED Medical Decision Making - Lab Data Result diagrams: 12/18/18 07:28 12/18/18 07:28 Lab Results 12/18/18 12/18/18 12/18/18 Range/Units 07:22 07:28 07:28 WBC 10.0 (4.5-11.0) K/mm3 RBC 4.42 (3.65-5.03) M/mm3 Hgb 11.7 (10.1-14.3) gm/dl Hct 35.4 (30.3-42.9) % MCV 80 (79-97) fl MCH 27 L (28-32) pg MCHC 33 (30-34) % RDW 15.2 (13.2-15.2) % Plt Count 305 (140-440) K/mm3 Lymph % (Auto) 30.9 (13.4-35.0) % [place] % (Auto) 5.5 (0.0-7.3) % Eos % (Auto) 1.9 (0.0-4.3) % Baso % (Auto) 0.4 (0.0-1.8) % Lymph # 3.1 (1.2-5.4) K/mm3 [place] # 0.6 (0.0-0.8) K/mm3 Eos # 0.2 (0.0-0.4) K/mm3 Baso # 0.0 (0.0-0.1) K/mm3 Seg Neutrophils % 61.3 (40.0-70.0) % Seg Neutrophils # 6.1 (1.8-7.7) K/mm3 Sodium 139 (137-145) mmol/L Potassium 3.9 (3.6-5.0) mmol/L Chloride 98.8 (98-107) mmol/L Carbon Dioxide 29 (22-30) mmol/L Anion Gap 15 mmol/L BUN 7 (7-17) mg/dL Creatinine 0.6 L (0.7-1.2) mg/dL Estimated GFR > 60 ml/min BUN/Creatinine Ratio 12 % Glucose 130 H (65-100) mg/dL Calcium 9.1 (8.4-10.2) mg/dL Total Bilirubin 0.20 (0.1-1.2) mg/dL AST 20 (5-40) units/L ALT 21 (7-56) units/L Alkaline Phosphatase 84 (35-129) units/L Total Protein 8.1 (6.3-8.2) g/dL Albumin 3.9 (3.9-5) g/dL Albumin/Globulin Ratio 0.9 % Urine Color Yellow (Yellow) Urine Turbidity Cloudy (Clear) Urine pH 8.0 H (5.0-7.0) Ur Specific [place] 1.010 (1.003-1.030) Urine Protein <15 mg/dl (Negative) mg/dL Urine Glucose (UA) Neg (Negative) mg/dL Urine Ketones Neg (Negative) mg/dL Urine Blood Neg (Negative) Urine Nitrite Neg (Negative) Urine Bilirubin Neg (Negative) Urine Urobilinogen < 2.0 (<2.0) mg/dL Ur Leukocyte Esterase Neg (Negative) Urine WBC (Auto) 4.0 (0.0-6.0) /HPF Urine RBC (Auto) < 1.0 (0.0-6.0) /HPF U Epithel Cells (Auto) 2.0 (0-13.0) /HPF Urine Bacteria (Auto) 2+ (Negative) /HPF Urine HCG, Qual Negative (Negative) - Radiology Data Radiology results: report reviewed - Medical Decision Making Discussed results with patient Critical care attestation.: If time is entered above; I have spent that time in minutes in the direct care of this critically ill patient, excluding procedure time. ED Disposition Clinical Impression: Cholelithiases Disposition: - TO HOME OR SELFCARE Is pt being admited?: No Does the pt Need Aspirin: No Condition: Stable Instructions: Abdominal Pain (ED), Biliary Colic (ED) Additional Instructions: return if worse Referrals: PRIMARY MD BRITTA [Primary Care Provider] - 3-5 Days MERA WEST MD [Staff Physician] - 3-5 Days Time of Disposition: 11:27
--- NOTE | 2018-12-18 09:48 | Ultrasound Report ---
LIMITED RUQ ABDOMINAL ULTRASOUND INDICATION: Right upper quadrant pain, vomiting for one day. COMPARISON: No relevant prior imaging study available. FINDINGS: Pancreas: Visualized portions show no significant abnormality. Abdominal Aorta: No significant abnormality. IVC: No significant abnormality. Liver: The liver measures 16.9 cm in length. No significant abnormality. Normal hepatopedal blood fl ow in the main portal vein. Gallbladder: Numerous shadowing gallstones are noted in the gallbladder. Gallbladder wall thickness i s normal measuring 2.7 mm.. Bile ducts: No significant abnormality. Common bile duct measures 4.8 mm. Right kidney: No significant abnormality visualized.. Free fluid: None. Additional Findings: None. IMPRESSION: Cholelithiasis. No evidence for acute cholecystitis on ultrasound.. Signer Name: Eugene Disla Jr, MD Signed: 12/18/2018 9:44 AM Workstation Name: [id number]
[2018-12-18 11:40] VITALS: BP 144/78
== END 2018-12-18 11:41 | disposition home or self-care (01) ==
LOC: ED 07:12
DX: K80.20 Calculus of gallbladder without cholecystitis without obstruction (principal); I10 Essential (primary) hypertension; E11.9 Type 2 diabetes mellitus without complications; G43.909 Migraine, unspecified, not intractable, without status migrainosus; F32.9 Major depressive disorder, single episode, unspecified; F41.9 Anxiety disorder, unspecified; Z79.899 Other long term (current) drug therapy; Z88.8 Allergy status to other drugs, medicaments and biological substances; Z91.013 Allergy to seafood
CPT/HCPCS: 36415; 76705; 80053; 81001; 81025; 85025; 96361; 96374; 96375; 99284; J2270; J2405; J7030

== ENCOUNTER 2019-01-20 10:48 | Day surgery (SDC) | payer MEDICAID ==
--- NOTE | 2019-01-19 14:40 | Short Stay Summary ---
Short Stay Documentation Date of service: 01/20/19 - History H&P: obtained from office - Allergies and Medications Current Medications: Allergies seafood Allergy (Uncoded 01/16/19 09:51) Anaphylaxis Home Medications Medication Instructions Recorded Confirmed Last Taken Type Losartan/Hydrochlorothiazide 1 each PO DAILY 11/02/16 01/16/19 Unknown History [Losartan-Hctz 50-12.5 mg Tab] amLODIPine [Norvasc] 10 mg PO DAILY 11/02/16 01/16/19 Unknown History clonazePAM [ Klonopin] 0.5 mg PO BID 11/02/16 01/16/19 Unknown History AtorvaSTATin [Lipitor] 20 mg PO QHS 01/16/19 01/16/19 Unknown History PARoxetine HCl [PARoxetine] 40 mg PO QAM 01/16/19 01/16/19 Unknown History busPIRone [Buspar] 15 mg PO TID 01/16/19 01/16/19 Unknown History metFORMIN [Glucophage] 500 mg PO BID 01/16/19 01/16/19 Unknown History traZODone [Desyrel] 100 mg PO QHS 01/16/19 01/16/19 Unknown History - Physical exam General appearance: no acute distress Integumentary: no rash HEENT: Atraumatic Lungs: Normal air movement Gastrointestinal: no tenderness, obese Neurological: Normal speech - Brief post op/procedure progress note Date of procedure: 01/20/19 (dictation:[id number]) Pre-op diagnosis: symptomatic cholelithiasis Post-op diagnosis: same Procedure: robotic assisted lap ron IVF 2L EBL<5cc Anesthesia: GETA Findings: intra-hepatic GB with large stone in dome Surgeon: MERA WEST Service Desk Analyst: ANGEL SCANLON Estimated blood loss: minimal Pathology: list (gallbladder) Specimen disposition: to lab Condition: stable - Hospital course Hospital course: uneventful - Disposition Condition at discharge: Stable Disposition: DC-01 TO HOME OR SELFCARE Short Stay Discharge Plan Diet: regular Wound: open to air, keep clean and dry Additional Instructions: Post Operative Instructions No driving until cleared by surgeon. May shower tomorrow. Pat dry the wound or wounds. Wound - Keep clean and dry, open to air. After surgery, start with a light diet. Consider having a liquid diet first. If you do well, you can advance to a regular diet as you feel comfortable. Apply an ice pack to the wound or wounds for 10-20 minutes at a time. Do this at least 4-5 times a day. You can do it more if he would like. Alternate the use of ibuprofen and Tylenol for the first 2 days. I want you to take these on a scheduled basis. Take 600 mg of ibuprofen every 6 hours. Take 500 mg of Tylenol every 6 hours. You should alternate these 2 medicines. In other words, beginning with the ibuprofen. After 3 hours, take the Tylenol. Keep alternating the 2 drugs every 3 hours. Do this on a scheduled basis for the first 2 days. After that, you can take them as needed. It is very important that you use the prescription pain medicine only for very severe pain. Do not take the prescription medicine before you try using the ibuprofen and Tylenol. We will call you in a couple of days to see how youre doing. If you have any questions or concerns, always feel free to call the clinic at any time. Follow up with: YANDEL BARCLAY MD [Primary Care Provider] - 7 Days MERA WEST MD [Staff Physician] - 7 Days Prescriptions: HYDROcodone/APAP 5-325 [[place] 5-325 mg TAB] 1 each PO Q6HR PRN #10 tablet PRN Reason: Pain , Severe (7-10)
[~2019-01-20 10:48] MED LIST: NACL 0.9% 1000 ML 1,000 ML IV SCH; NEURONTIN PO SCH; TYLENOL PO ONE; ceFAZolin 3 GM in NACL 0.9% 100 ML IV NR
[2019-01-20] MEDS ORDERED: TYLENOL PO NR (11:15)
[2019-01-20] MEDS ORDERED: DILAUDID IV PRN (11:58)
--- NOTE | 2019-01-20 11:58 | Anesthesia Day of Surgery ---
Anesthesia Day of Surgery - Day of Surgery Patient Examined: Yes Patient H&P Reviewed: Yes Patient is NPO: Yes
--- NOTE | 2019-01-20 11:58 | Anesthesia Consultation ---
Anesthesia Consult and Med Hx Date of service: 01/20/19 - Airway Anesthetic Teeth Evaluation: Good (missing wisdom teeth x4 + right upper molars) ROM Head & Neck: Adequate Mental/Hyoid Distance: Adequate Mallampati Class: Class II Intubation Access Assessment: Probably Good - Pulmonary Exam CTA: Yes - Cardiac Exam Cardiac Exam: RRR - Pre-Operative Health Status ASA Pre-Surgery Classification: ASA3 Proposed Anesthetic Plan: General - Pulmonary Hx Smoking: No Hx Respiratory Symptoms: No - Cardiovascular System Hx Hypertension: Yes Hx Heart Attack/AMI: No Hx Percutaneous Transluminal Coronary Angioplasty (PTCA): No - Central Nervous System CVA: No Hx Back Pain: Yes (lower) Hx Psychiatric Problems: Yes (anxeity/depression) - Gastrointestinal Hx Gastroesophageal Reflux Disease: Yes (asymptomatic today) - Endocrine Hx Renal Disease: No Hx Liver Disease: No Hx Non-Insulin Dependent Diabetes: Yes ("pre-DM" currently on metformin only) Hx Thyroid Disease: No - Other Systems Hx Obesity: Yes (BMI 43) - Additional Comments Anesthesia Medical History Comments: No prior GA. No FHx anesthetic complications.
[2019-01-20] MEDS ORDERED: VERSED IV NR (12:00)
[2019-01-20] MEDS ORDERED: TRANSDERM-SCOP TD NR (12:00)
[2019-01-20] MEDS ORDERED: SUBLIMAZE ONE (12:23)
[2019-01-20] MEDS ORDERED: XYLOCAINE 1% 20 mL ONE (12:23)
[2019-01-20] MEDS ORDERED: ZEMURON IV ONE ×2 (12:23→14:23)
[2019-01-20] MEDS ORDERED: MARCAINE-EPI 0.5%-1:200,000 INFILTRATI ONE ×2 (12:23→13:28)
[2019-01-20] MEDS ORDERED: ZOFRAN ONE (12:23)
[2019-01-20] MEDS ORDERED: DIPRIVAN 10 MG/ML IV ONE (12:23)
[2019-01-20] MEDS ORDERED: XYLOCAINE MPF 2% ONE (12:23)
[2019-01-20] MEDS ORDERED: TORADOL ONE (12:23)
[2019-01-20] MEDS ORDERED: DECADRON ONE (12:23)
[2019-01-20] MEDS ORDERED: XYLOCAINE 1% 20 mL INFILTRATI ONE (13:28)
[2019-01-20] MEDS ORDERED: NACL 0.9% IR ONE (13:28)
[2019-01-20] MEDS ORDERED: PHENYLEPHRINE/NS Syringe 1,000 MCG/10 ML IV ONE (13:46)
[2019-01-20] MEDS ORDERED: ROBINUL ONE (14:35)
[2019-01-20] MEDS ORDERED: BLOXIVERZ ONE (14:35)
[2019-01-20] MEDS ORDERED: BRIDION IV ONE (14:52)
--- NOTE | 2019-01-20 18:08 | Operative Report ---
PREOPERATIVE DIAGNOSIS: Symptomatic cholelithiasis. POSTOPERATIVE DIAGNOSIS: Symptomatic cholelithiasis. PROCEDURE: Robotic-assisted laparoscopic cholecystectomy. ATTENDING PHYSICIAN: Yoli Pop MD CRIMINALIST: Dr. Shaw. ANESTHESIA: General. ESTIMATED BLOOD LOSS: Minimal. FLUIDS: 2 liters. FINDINGS: Distended gallbladder with very large stone in the dome, mild adhesions and inflammatory reaction near the triangle of Calot. SPECIMENS: Gallbladder. DRAINS: None. COMPLICATIONS: None. Stable, transferred to Recovery Room. INDICATIONS: This is a 38-year-old obese female who presented to the office with complaints of recurrent right upper quadrant pain after meals. Ultrasound confirmed cholelithiasis. The patient is assessed to be in need for cholecystectomy. Procedure, risks, benefits were explained to the patient. Risks included but were not limited to infection, bleeding, pain, injury to surrounding structures, possible need for open surgery, possible need for further procedures in the future. The patient understood and consented. OPERATIVE NOTE: The patient was brought to the operating room and placed on the table in supine position. After adequate general anesthesia was established, the patient was prepped and draped in the usual sterile fashion. SCDs were in place. Antibiotics had been given. Time-out was called. I began by placing a Veress needle in left upper quadrant. I was able to insufflate in first attempt. This was replaced with a 5 mm port that was inserted using the Optiview technique. We were able to enter the peritoneal cavity safely. There was no injury to the underlying structures. Under direct vision, a 12 mm port was placed in the subumbilical position, two 8 mm ports were placed in the right side of the abdomen and then the 5 was replaced with an 8. Ray-Chanell was inserted into the abdomen and then the robot was docked. The patient had been positioned per the usual protocol for a cholecystectomy. I then proceeded to the console. I began by taking down some adhesions to the gallbladder from the omentum. This was a more difficult case as the patient was morbidly obese and the gallbladder was intrahepatic. Extra time was required for the dissection. We probably added an additional 20-30 minutes due to the difficulties from the body habitus and the intrahepatic nature of the gallbladder. I did a combination of a top down technique and some dissection in the triangle of Calot based on what was easier to do, so I went back and forth and ultimately created a very large critical view. We dissected out the cystic artery, cystic duct. There were a few small adhesions around the area, a few small vessels but we clearly had dissected our ductal structure that went straight into the gallbladder and did not look as though it simply tented up. It appeared as though we could see as well where the cystic duct was about to join the common duct. Therefore, when we placed the clips, we made sure we were not below that junction. Two clips were placed distally, 1 proximally in relation to gallbladder. Cystic duct was divided. One clip was placed distally on the cystic artery in relation to gallbladder that was divided. There was another small structure that probably was an adhesion, but just to be on the safe side, I placed a clip on it in case there was a small vessel. This was smaller than the cystic artery that we had divided. The rest of the attachments to the liver bed were taken down. There was very minimal left at this point. The gallbladder was left inside. We examined the bed. We had excellent hemostasis. There was no leaking of bile or blood from the clips. Everything looked very good. We placed the gallbladder in the EndoCatch bag. We had converted back to laparoscopic portion of this case. I tried to aspirate because the dome appeared to be quite prominent in size. I thought perhaps it was full of fluid. However, we were unable to aspirate any fluid. When we took the gallbladder out, there was a very large stone in the dome, which probably accounted for most of the size. We removed the EndoCatch from the umbilical port site. We closed the umbilical port site with a Seth-Shanda fascial closure device using an 0 Vicryl stitch. We had removed the Ray-Chanell at this point. We then removed the other ports under direct vision, desufflated the abdomen. Additional local was injected. We had injected local at the beginning of the case too. Using 4-0 Monocryl, we closed all the skin sites with 4-0 Monocryl subcuticular stitches. Skin was cleaned and dried. Dermabond was placed. The patient tolerated the procedure well. There were no complications. All counts were correct at the end of the case. I spoke with at the end of the case. He was appreciative. JOB# [id number] HERLINDA SANDERS
--- NOTE | 2019-01-20 20:27 | Post Anesthesia Evaluation ---
- Post Anesthesia Evaluation Patient Participated: Yes Airway Patent: Yes Stable Respiratory Function: Yes Nausea/Vomiting: No Temp > 96.8F: Yes Pain Manageable: Yes Adequeate Hydration: Yes Anesthesia Complications: No
[2019-01-20 21:38] VITALS: BP 128/68
== END 2019-01-20 10:49 | disposition home or self-care (01) ==
LOC: OR 10:48
PROVIDERS: ATTEND Surgery
DX: K80.20 Calculus of gallbladder without cholecystitis without obstruction (principal); I10 Essential (primary) hypertension; E66.01 Morbid (severe) obesity due to excess calories; G43.909 Migraine, unspecified, not intractable, without status migrainosus; E78.00 Pure hypercholesterolemia, unspecified; K21.9 Gastro-esophageal reflux disease without esophagitis; E11.9 Type 2 diabetes mellitus without complications; F32.9 Major depressive disorder, single episode, unspecified; F41.9 Anxiety disorder, unspecified; Z98.890 Other specified postprocedural states; Z91.013 Allergy to seafood; Z79.899 Other long term (current) drug therapy; Z79.84 Long term (current) use of oral hypoglycemic drugs; Z68.41 Body mass index [BMI] 40.0-44.9, adult; Z83.3 Family history of diabetes mellitus; Z80.3 Family history of malignant neoplasm of breast; Z86.2 Personal history of diseases of the blood and blood-forming organs and certain disorders involving the immune mechanism; Z82.49 Family history of ischemic heart disease and other diseases of the circulatory system
CPT/HCPCS: 47562; 81025; 82962; 88304; J0690; J1100; J1885; J2250; J2370; J2405; J2704; J2710; J3010; J7030; S2900

== ENCOUNTER 2019-03-24 09:42 | Outpatient (CLI) | payer MEDICAID ==
[2019-03-24 10:25] LABS: Basophils # (Auto) 0.1 K/mm3 (0.0-0.1); Eosinophils # (Auto) 0.2 K/mm3 (0.0-0.4); Eosinophils % (Auto) 2.7 % (0.0-4.3); Hematocrit 34.4 % (30.3-42.9); Hemoglobin 11.3 gm/dl (10.1-14.3); Lymphocytes # (Auto) 2.1 K/mm3 (1.2-5.4); Lymphocytes % (Auto) 25.5 % (13.4-35.0); Mean Corpuscular HGB Conc 33 % (30-34); Mean Corpuscular Volume 80 fl (79-97); Monocytes # (Auto) 0.4 K/mm3 (0.0-0.8); Monocytes % (Auto) 5.2 % (0.0-7.3); Platelet Count 357 K/mm3 (140-440); Red Blood Count 4.29 M/mm3 (3.65-5.03); Red Cell Distribution Width 15.2 % (13.2-15.2)
[2019-03-24 10:35] LABS: Alanine Aminotransferase 16 units/L (7-56); Albumin 4.2 g/dL (3.9-5); BUN/Creatinine Ratio 11; Blood Urea Nitrogen 8 mg/dL (7-17); Calcium 9.1 mg/dL (8.4-10.2); Chol/HDL Ratio 1.66 %; HDL Cholesterol 56 mg/dL (40-59); Hemolysis Index 0; LDL Cholesterol,Direct 34 mg/dL (50-130)
== END 2019-03-24 09:43 | disposition home or self-care (01) ==
LOC: LAB 09:42
PROVIDERS: ATTEND Surgery
DX: Z01.810 Encounter for preprocedural cardiovascular examination (principal); E11.9 Type 2 diabetes mellitus without complications; K30 Functional dyspepsia
CPT/HCPCS: 36415; 80053; 80061; 82607; 83036; 84443; 85025

== ENCOUNTER 2019-06-02 11:00 | Outpatient (CLI) | payer MEDICAID | END 2019-06-02 11:01 | disposition home or self-care (01) | LOC: SLR 11:00 | PROVIDERS: ATTEND Otolaryngology | DX: G47.33 Obstructive sleep apnea (adult) (pediatric) (principal); I10 Essential (primary) hypertension | CPT/HCPCS: G0399 ==

== ENCOUNTER 2019-06-02 13:54 | Outpatient (CLI) | payer MEDICAID | END 2019-06-02 13:55 | disposition home or self-care (01) | LOC: PF 13:54 | PROVIDERS: ATTEND Surgery | DX: E66.2 Morbid (severe) obesity with alveolar hypoventilation (principal) | CPT/HCPCS: 94010 ==

== ENCOUNTER 2019-06-11 11:00 | Outpatient (CLI) | payer MEDICAID | END 2019-06-11 11:01 | disposition home or self-care (01) | LOC: SLR 11:00 | PROVIDERS: ATTEND Otolaryngology | DX: G47.33 Obstructive sleep apnea (adult) (pediatric) (principal); R06.83 Snoring | CPT/HCPCS: 95811 ==

== ENCOUNTER 2020-01-26 12:59 | Outpatient (CLI) | payer MEDICAID ==
--- NOTE | 2020-01-27 09:57 | Mammography Report ---
DIGITAL SCREENING MAMMOGRAM WITH CAD, 01/26/2020 INDICATION: Routine screening mammography. TECHNIQUE: Digital bilateral 2D mammography was obtained in the craniocaudal and mediolateral obliq ue projections. This examination was interpreted with the benefit of Computer-Aided Detection analysi s. COMPARISON: 06/04/2018 FINDINGS: Breast Density: There are scattered areas of fibroglandular density. There is no evidence of dominant mass, suspicious calcifications or architectural distortion in eithe r breast. A biopsy clip is again seen along the 6:00 position middle depth of the left breast. IMPRESSION: Follow up recommendation: Routine yearly BI-RADS Category 2: Benign. A "normal" or negative report should not discourage follow up or biopsy of a clinically significant f inding. A written summary of these findings will be mailed to the patient. The patient will be entered into a mammography reporting system which will generate a reminder letter for the patient's next appointmen t at the appropriate interval. The [employer] recommends yearly mammograms starting at age 40 and continuing as l ernie as a woman is in good health. Breast MRI is recommended for women with an approximate 20-25% or greater lifetime risk of breast cancer, including women with a strong family history of breast or ova michael cancer or who have been treated for Hodgkin's disease. Signer Name: Giancarlo Hutchinson MD Signed: 01/27/2020 9:06 AM Workstation Name: [employer]
== END 2020-01-26 13:00 | disposition home or self-care (01) ==
LOC: MAMMO 12:59
PROVIDERS: ATTEND Internal Medicine
DX: Z12.31 Encounter for screening mammogram for malignant neoplasm of breast (principal)
CPT/HCPCS: 77067

== ENCOUNTER 2020-02-25 08:07 | Outpatient (CLI) | payer MEDICAID ==
--- NOTE | 2020-02-25 12:18 | Fluoroscopy Report ---
Upper GI HISTORY: K21.01. Preoperative evaluation for gastric bypass surgery Technique: Single and double contrast barium technique utilized to evaluate the esophagus, stomach, and duodenal C-loop. Findings: To begin the exam, swallowing was evaluated in the lateral position under direct fluorosco py. Swallowing was normal. No mucosal irregularity, mass, mass effect, or critical stenosis. There were no abnormal tertiary c ontractions as seen with dysmotility. There was moderate gastroesophageal reflux reaching the mid eso phagus. Impression: Moderate gastroesophageal reflux. Fluoroscopic time: 1.1 minutes Number of fluoroscopic images: Signer Name: Refugio Quintero MD Signed: 02/25/2020 12:17 PM Workstation Name: [id number]
== END 2020-02-25 08:08 | disposition home or self-care (01) ==
LOC: FLUORO 08:07
PROVIDERS: ATTEND Surgery
DX: K21.01 Gastro-esophageal reflux disease with esophagitis, with bleeding (principal)
CPT/HCPCS: 74246

== ENCOUNTER 2020-05-07 11:16 | Outpatient (CLI) | payer MEDICAID ==
[2020-05-07 11:58] LABS: Basophils % (Auto) 0.5 % (0.0-1.8); Eosinophils # (Auto) 0.2 K/mm3 (0.0-0.4); Eosinophils % (Auto) 3.7 % (0.0-4.3); Hematocrit 33.5 % (30.3-42.9); Hemoglobin 11.8 gm/dl (10.1-14.3); Lymphocytes # (Auto) 1.9 K/mm3 (1.2-5.4); Lymphocytes % (Auto) 32.8 % (13.4-35.0); Mean Corpuscular HGB Conc 35 % (30-34); Mean Corpuscular Volume 79 fl (79-97); Monocytes # (Auto) 0.4 K/mm3 (0.0-0.8); Monocytes % (Auto) 6.2 % (0.0-7.3); Platelet Count 292 K/mm3 (140-440); Red Blood Count 4.23 M/mm3 (3.65-5.03); Red Cell Distribution Width 16.4 % (13.2-15.2)
[2020-05-07 12:22] LABS: Alanine Aminotransferase 27 units/L (7-56); Albumin 4.1 g/dL (3.9-5); BUN/Creatinine Ratio 14; Blood Urea Nitrogen 11 mg/dL (7-17); Calcium 9.4 mg/dL (8.4-10.2); Chol/HDL Ratio 2.03 %; HDL Cholesterol 51 mg/dL (40-59); Hemolysis Index 1; Iron 74 ug/dL (37-170); LDL Cholesterol,Direct 48 mg/dL (50-130)
[2020-05-07 12:23] LABS: Total Iron Binding Capacity 275 mcg/dL (250-450)
== END 2020-05-07 11:17 | disposition home or self-care (01) ==
LOC: LAB 11:16
PROVIDERS: ATTEND Surgery
DX: E11.9 Type 2 diabetes mellitus without complications (principal); E66.01 Morbid (severe) obesity due to excess calories; K30 Functional dyspepsia; Z98.84 Bariatric surgery status
CPT/HCPCS: 36415; 80053; 80061; 82306; 82607; 82728; 83036; 83550; 84425; 84443; 85025

== ENCOUNTER 2021-07-26 08:58 | Emergency (ER) | payer MEDICAID ==
--- NOTE | 2021-07-26 10:46 | Vascular Lab Report ---
DUPLEX DOPPLER LOWER EXTREMITY VEINS, LEFT INDICATION: leg pain. TECHNIQUE: Duplex doppler imaging was performed through the veins of the left lower extremity using venous compression and other maneuvers. COMPARISON: No relevant prior imaging study available. FINDINGS: Left Common femoral vein: Negative. Left Superficial femoral vein: Negative. Left Popliteal vein: Negative. Left Calf veins: Negative. Additional findings: None. IMPRESSION: No sonographic evidence for DVT in the left lower extremity. Signer Name: Eugene Disla Jr, MD Signed: 07/26/2021 10:42 AM Workstation Name: [id number]
--- NOTE | 2021-07-26 12:28 | Emergency Department Report ---
ED Extremity Problem HPI - General Chief complaint: Extremity Injury, Lower Stated complaint: LEFT LEG PAIN Source: patient Mode of arrival: Ambulatory Limitations: No Limitations - History of Present Illness Initial comments: Patient is a 41-year-old -[place] female with a history of hypertension, migraine headaches, GERD, anxiety and depression and chronic low back pain who presents to the ED with complaint of acute onset persistent nontraumatic diffuse left leg pain for the last 2 weeks intermittently, worse in the last 5 days. Patient states that the pain is spasmic, sharp with a burning sensation. Patient states that the pain is persistent and worse with any movement but the burning sensation occurs only at rest. Patient denies chest pain, shortness of breath, fever, chills, nausea, vomiting, dysuria, urinary frequency and urgency, fall, heavy lifting, dizziness, heavy lifting, numbness and tingling or weakness of lower extremities bilaterally. MD Complaint: extremity pain (Left leg pain) -: Sudden, week(s) (2) Location: left, lower extremity (left thigh and left calf pain) History of Same: Yes -: Yes arthralgia Radiation: distal Severity scale (0 -10): 6 Quality: aching, sharp, other (Burning sensation) Consistency: constant Improves with: nothing Worsens with: weight bearing, walking, palpation Associated Symptoms: denies other symptoms, arthralgias. denies: chest pain, shortness of breath, fever, myalgias, rash - Related Data Home Medications Medication Instructions Recorded Confirmed Last Taken Losartan/Hydrochlorothiazide 1 each PO DAILY 11/02/16 03/08/20 03/08/20 05:00 [Losartan-Hctz 50-12.5 mg Tab] amLODIPine 10 mg PO DAILY 11/02/16 03/08/20 03/08/20 05:00 clonazePAM [KlonoPIN] 0.5 mg PO BID 11/02/16 03/08/20 03/08/20 05:00 AtorvaSTATin [Lipitor] 20 mg PO QHS 01/16/19 03/08/20 03/07/20 20:00 PARoxetine HCL [PARoxetine] 40 mg PO QAM 01/16/19 03/08/20 03/08/20 05:00 busPIRone [Buspar] 15 mg PO BID 10/10/19 11/30/20 11/29/20 20:00 metFORMIN [Glucophage] 500 mg PO BID 01/16/19 03/08/20 03/07/20 20:00 traZODone [Desyrel] 100 mg PO QHS 01/16/19 03/08/20 03/07/20 20:00 Quetiapine Fumarate [SEROquel] 50 mg PO HS 02/26/20 03/08/20 03/07/20 20:00 Previous Rx's Medication Instructions Recorded Last Taken Type Ibuprofen [Motrin] 600 mg PO Q8H PRN #30 tablet 07/26/21 Unknown Rx methOCARBAMOL [Robaxin TAB] 750 mg PO BID PRN #60 tab 07/26/21 Unknown Rx predniSONE [Deltasone] 60 mg PO QDAY #15 tab 07/26/21 Unknown Rx traMADoL [Ultram] 50 mg PO Q6HR PRN #12 tablet 07/26/21 Unknown Rx Allergies Allergy/AdvReac Type Severity Reaction Status Date / Time seafood Allergy Severe Anaphylaxis Uncoded 07/26/21 09:10 ED Review of Systems ROS: Stated complaint: LEFT LEG PAIN Other details as noted in HPI Constitutional: denies: chills, fever Eyes: denies: eye pain, eye discharge, vision change ENT: denies: ear pain, throat pain Respiratory: denies: cough, shortness of breath, wheezing Cardiovascular: denies: chest pain, palpitations Endocrine: no symptoms reported Gastrointestinal: denies: abdominal pain, nausea, diarrhea Genitourinary: denies: urgency, dysuria, discharge Musculoskeletal: back pain (Low back pain), arthralgia (Left thigh and left calf pain). denies: joint swelling Skin: denies: rash, lesions Neurological: denies: headache, weakness, paresthesias Psychiatric: denies: anxiety, depression Hematological/Lymphatic: denies: easy bleeding, easy bruising ED Past Medical Hx - Past Medical History Previous Medical History?: Yes Hx Hypertension: Yes Hx Heart Attack/AMI: No Hx Diabetes: Yes (PRE DX 11/2018; START PO MED 01/07/19) Hx GERD: Yes Hx Liver Disease: No Hx Renal Disease: No Hx Sickle Cell Disease: No Hx Headaches / Migraines: Yes (migraines) Hx Seizures: No Hx Psychiatric Treatment: Yes (depression and anxiety) Hx Asthma: No Hx COPD: No Hx HIV: No - Surgical History Past Surgical History?: Yes Hx Cholecystectomy: Yes - Social History Smoking Status: Never Smoker Substance Use Type: None - Medications Home Medications: Home Medications Medication Instructions Recorded Confirmed Last Taken Type Losartan/Hydrochlorothiazide 1 each PO DAILY 11/02/16 03/08/20 03/08/20 05:00 History [Losartan-Hctz 50-12.5 mg Tab] amLODIPine 10 mg PO DAILY 11/02/16 03/08/20 03/08/20 05:00 History clonazePAM [KlonoPIN] 0.5 mg PO BID 11/02/16 03/08/20 03/08/20 05:00 History AtorvaSTATin [Lipitor] 20 mg PO QHS 01/16/19 03/08/20 03/07/20 20:00 History PARoxetine HCL [PARoxetine] 40 mg PO QAM 01/16/19 03/08/20 03/08/20 05:00 History busPIRone [Buspar] 15 mg PO BID 01/16/19 03/08/20 03/07/20 20:00 History metFORMIN [Glucophage] 500 mg PO BID 01/16/19 03/08/20 03/07/20 20:00 History traZODone [Desyrel] 100 mg PO QHS 01/16/19 03/08/20 03/07/20 20:00 History Quetiapine Fumarate [SEROquel] 50 mg PO HS 02/26/20 03/08/20 03/07/20 20:00 History Ibuprofen [Motrin] 600 mg PO Q8H PRN #30 tablet 07/26/21 Unknown Rx methOCARBAMOL [Robaxin TAB] 750 mg PO BID PRN #60 tab 07/26/21 Unknown Rx predniSONE [Deltasone] 60 mg PO QDAY #15 tab 07/26/21 Unknown Rx traMADoL [Ultram] 50 mg PO Q6HR PRN #12 tablet 07/26/21 Unknown Rx ED Physical Exam - General Limitations: No Limitations General appearance: alert, in no apparent distress - Head Head exam: Present: atraumatic, normocephalic, normal inspection - Eye Eye exam: Present: normal appearance, PERRL, EOMI Pupils: Present: normal accommodation - ENT ENT exam: Present: normal exam, normal orophraynx, mucous membranes moist, TM's normal bilaterally, normal external ear exam - Neck Neck exam: Present: normal inspection, full ROM. Absent: tenderness, lymphadenopathy - Respiratory Respiratory exam: Present: normal lung sounds bilaterally. Absent: respiratory distress, wheezes, rales, rhonchi, chest wall tenderness, accessory muscle use, decreased breath sounds, prolonged expiratory - Cardiovascular Cardiovascular Exam: Present: regular rate, normal rhythm, normal heart sounds. Absent: systolic murmur, diastolic murmur, rubs, gallop - GI/Abdominal GI/Abdominal exam: Present: soft, normal bowel sounds. Absent: tenderness, guarding, rebound, hyperactive bowel sounds, hypoactive bowel sounds, organomegaly, mass - Extremities Exam Extremities exam: Present: normal inspection, full ROM, tenderness (Palpable reproducible left thigh and left calf tenderness), normal capillary refill, calf tenderness (Left calf tenderness). Absent: pedal edema, joint swelling - Back Exam Back exam: Present: normal inspection, full ROM, tenderness, muscle spasm, paraspinal tenderness. Absent: CVA tenderness (R), CVA tenderness (L) (Palpable lumbosacral paraspinal musculoskeletal tenderness), vertebral tenderness - Neurological Exam Neurological exam: Present: alert, oriented X3, CN II-XII intact, normal gait, reflexes normal - Psychiatric Psychiatric exam: Present: normal affect, normal mood - Skin Skin exam: Present: warm, dry, intact, normal color. Absent: rash ED Medical Decision Making - Radiology Data Radiology results: report reviewed, image reviewed [facility] [address] [place] [address] Vascular Lab Report Signed Patient: DEVIN VALENTINE MR#: [id number] : 1980 Acct:[id number] Age/Sex: 41 / F ADM Date: 07/26/21 Loc: ED Attending Dr: Ordering Physician: FARZANA HERNANDEZ Date of Service: 07/26/21 Procedure(s): VL venous duplex LE Accession Number(s): [id number] cc: FARZANA HERNANDEZ DUPLEX DOPPLER LOWER EXTREMITY VEINS, LEFT INDICATION: leg pain. TECHNIQUE: Duplex doppler imaging was performed through the veins of the left lower extremity using venous compression and other maneuvers. COMPARISON: No relevant prior imaging study available. FINDINGS: Left Common femoral vein: Negative. Left Superficial femoral vein: Negative. Left Popliteal vein: Negative. Left Calf veins: Negative. Additional findings: None. IMPRESSION: No sonographic evidence for DVT in the left lower extremity. Signer Name: Eugene Disla Jr, MD Signed: 07/26/2021 10:42 AM Workstation Name: [id number] Transcribed By: TTR Dictated By: EUGENE DISLA JR, MD Electronically Authenticated By: EUGENE DISLA JR, MD Signed Date/Time: 07/26/211041 DD/ 41 TD/TT: Print - Medical Decision Making This is a 41-year-old -[place] female with a history of hypertension, migraine headaches, anxiety and depression, GERD and chronic low back pain who presents to the ED with complaint of acute onset persistent nontraumatic diffuse left leg pain for the last 2 weeks intermittently, worse in the last 5 days. Patient states that the pain is spasmic, sharp with a burning sensation. Patient states that the pain is persistent and worse with any movement but the burning sensation occurs only at rest. In the ED, patient is alert and oriented x 3 and is in no acute distress. Left leg doppler US showed no sonographic evidence of DVT. Patient symptoms are likely musculoskeletal or as a result of sciatica. Patient was therefore discharged home on medications and advised to follow-up with her primary care physician in 7 to 10 days for reevaluation or return to the ED immediately if symptoms get worse. - Differential Diagnosis Muscle strain; muscle spasm; DVT; sciatica; lumbar radiculopathy Critical care attestation.: If time is entered above; I have spent that time in minutes in the direct care of this critically ill patient, excluding procedure time. ED Disposition Clinical Impression: Muscle spasm of left lower extremity, Muscle strain of muscle of posterior left lower leg Chronic low back pain with left-sided sciatica Qualifiers: Back pain laterality: bilateral Qualified Code(s): M54.42 - Lumbago with sciatica, left side; G89.29 - Other chronic pain Disposition: 01 HOME / SELF CARE / HOMELESS Is pt being admited?: No Does the pt Need Aspirin: No Condition: Stable Instructions: Muscle Cramps and Spasms, [id number], Muscle Strain, [id number], Chronic Back Pain, [id number], Sciatica Rehab-SportsMed Additional Instructions: The left leg Doppler ultrasound showed no sonographic evidence of DVT. Your symptoms are likely musculoskeletal or as a result of lumbar radiculopathy. Therefore take medications as needed for pain, drink plenty of fluids and follow-up with your primary care physician in 7 to 10 days for reevaluation. Return to the ED immediately if symptoms get worse. Prescriptions: predniSONE [Deltasone] 60 mg PO QDAY #15 tab Ibuprofen [Motrin] 600 mg PO Q8H PRN #30 tablet PRN Reason: Pain methOCARBAMOL [Robaxin TAB] 750 mg PO BID PRN #60 tab PRN Reason: Muscle Spasm traMADoL [Ultram] 50 mg PO Q6HR PRN #12 tablet PRN Reason: Pain Referrals: BERNABE ADAMS MD [Primary Care Provider] - 3-5 Days Time of Disposition: 12:33 Print Language: CHADIAN
[2021-07-26 14:13] VITALS: BP 140/68
== END 2021-07-26 13:12 | disposition home or self-care (01) ==
LOC: ED 08:58
DX: S86.112A Strain of other muscle(s) and tendon(s) of posterior muscle group at lower leg level, left leg, initial encounter (principal); M54.42 Lumbago with sciatica, left side; R25.2 Cramp and spasm; Z91.013 Allergy to seafood; X58.XXXA Exposure to other specified factors, initial encounter; Y93.89 Activity, other specified; Y92.89 Other specified places as the place of occurrence of the external cause; Y99.8 Other external cause status
CPT/HCPCS: 99283

== ENCOUNTER 2021-09-22 15:00 | Outpatient (CLI) | payer MEDICAID ==
[2021-09-22 15:38] LABS: Basophils % (Auto) 0.5 % (0.0-1.8); Eosinophils # (Auto) 0.2 K/mm3 (0.0-0.4); Eosinophils % (Auto) 4.9 % (0.0-4.3); Hematocrit 32.6 % (30.3-42.9); Hemoglobin 10.4 gm/dl (10.1-14.3); Lymphocytes # (Auto) 1.9 K/mm3 (1.2-5.4); Mean Corpuscular HGB Conc 32 % (30-34); Mean Corpuscular Volume 81 fl (79-97); Monocytes # (Auto) 0.4 K/mm3 (0.0-0.8); Monocytes % (Auto) 8.5 % (0.0-7.3); Platelet Count 355 K/mm3 (140-440); Red Blood Count 4.05 M/mm3 (3.65-5.03); Red Cell Distribution Width 16.8 % (13.2-15.2)
[2021-09-22 16:13] LABS: % Iron Saturation 9.57 %; Alanine Aminotransferase 21 units/L (7-56); Albumin 4.3 g/dL (3.9-5); Blood Urea Nitrogen 10 mg/dL (7-17); Calcium 9.3 mg/dL (8.4-10.2); Chol/HDL Ratio 1.37 %; HDL Cholesterol 79 mg/dL (40-59); Hemolysis Index 1; Iron 33 ug/dL (37-170); LDL Cholesterol,Direct 25 mg/dL (50-130); Total Iron Binding Capacity 345 mcg/dL (250-450)
[2021-09-22 16:21] LABS: BUN/Creatinine Ratio 17
== END 2021-09-22 15:01 | disposition home or self-care (01) ==
LOC: LAB 15:00
PROVIDERS: ATTEND Surgery
DX: Z13.21 Encounter for screening for nutritional disorder (principal); Z13.29 Encounter for screening for other suspected endocrine disorder; E11.9 Type 2 diabetes mellitus without complications; E66.01 Morbid (severe) obesity due to excess calories; K30 Functional dyspepsia; E55.9 Vitamin D deficiency, unspecified; K90.9 Intestinal malabsorption, unspecified; Z98.84 Bariatric surgery status
CPT/HCPCS: 36415; 80053; 80061; 82306; 82607; 82728; 83036; 83550; 83970; 84425; 84443; 85025